=== PATIENT | male | born 1990 | race Caucasian/White ===

== ENCOUNTER 2017-12-25 18:29 | Emergency (ER) | payer BC ==
[~2017-12-25] VITALS: Ht 175.3 cm; Wt 111.4 kg
[2017-12-25 18:43] VITALS: Ht 175.3 cm; Wt 111.4 kg
[2017-12-25] MEDS ORDERED: DOXYCYCLINE HY100 M2 PO (19:09)
[2017-12-25 19:55] VITALS: BP 135/85
== END 2017-12-25 19:56 | disposition home or self-care (01) ==
LOC: D.ER 18:29
DX: J06.9 Acute upper respiratory infection, unspecified (principal); F17.200 Nicotine dependence, unspecified, uncomplicated

== ENCOUNTER 2020-07-29 07:38 | Emergency (ER) | payer SELFPAY ==
[~2020-07-29] VITALS: Ht 175.3 cm; Wt 137.4 kg
[~2020-07-29 07:38] MED LIST: DOXYCYCLINE HY100 M2 PO
[2020-07-29 07:43] VITALS: Ht 175.3 cm; Wt 137.4 kg
[2020-07-29 08:13] LABS: BASOPHILS 0.1 % (0-2); EOSINOPHILS 5.1 % (0-7); HEMATOCRIT 45.7 % (42.0-54.0); HEMOGLOBIN 14.8 g/dL (13.5-17.5); IMMATURE GRANULOCYTES 0.3 % (0-5); LYMPHOCYTE ABS# 2.46 10x3/uL (1.32-3.57); LYMPHOCYTES 33.2 % (15-50); MCHC 32.4 g/dL (31.0-37.0); MCV 83.4 fL (80.0-100.0); MEAN PLATELET VOLUME 9.6 fL (7.4-10.4); MONOCYTES 8.1 % (2-11); NEUTROPHIL ABS# 3.95 10x3/uL (1.78-5.38); NEUTROPHILS 53.2 % (40-80); PLATELET COUNT 293 10x3/uL (130-400); RBC 5.48 10x6/uL (4.20-6.10); RDW 13.8 % (11.5-14.5); WBC 7.4 10x3/uL (4.8-10.8)
[2020-07-29 08:22] LABS: CALC OSMOLALITY 276 mosm/kg (275-300); CHLORIDE - SERUM 103 mmol/L (98-107); CREATININE - SERUM 1.1 mg/dL (0.6-1.3); GLUCOSE 106 mg/dL (74-106); POTASSIUM - SERUM 4.2 mmol/L (3.5-5.1); SODIUM 138 mmol/L (136-145); UREA NITROGEN 14 mg/dL (7-18); eGFR NON AFRICAN AMERICAN 83 mL/min (90-120)
[2020-07-29 08:26] LABS: ALBUMIN 3.9 g/dL (3.4-5.0); ALKALINE PHOSPHATASE 118 U/L (30-120); ALT (SGPT) 44 U/L (10-68); AMYLASE - SERUM 58 U/L (25-115); BILIRUBIN - TOTAL 0.22 mg/dL (0.2-1.3); LIPASE 92 U/L (73-393); PROTEIN - SERUM 8.1 g/dL (6.4-8.2); TROPONIN-I < 0.017 ng/mL (0.000-0.060)
[2020-07-29 09:25] VITALS: BP 129/85
[2020-07-29 09:42] LABS: BILIRUBIN NEGATIVE (NEGATIVE); KETONE NEGATIVE (NEGATIVE); NITRITE NEGATIVE (NEGATIVE); UROBILINOGEN NORMAL mg/dL (< 2)
[2020-07-29 09:43] LABS: BACTERIA FEW HPF (NONE SEEN); SQUAMOUS EPITHELIAL 0-5 HPF (0-4); WHITE CELLS - URINE 2 HPF (0-1)
[2020-07-29] MEDS ORDERED: CARAFATE1 G PO (10:19)
[2020-07-29] MEDS ORDERED: LEVSIN/ANASP0.125 MG PO (10:19)
[2020-07-29] MEDS ORDERED: FLORASTOR250 MG PO (10:19)
[2020-07-29] MEDS ORDERED: PROTONIX40 MG PO (10:19)
[2020-07-29] MEDS ORDERED: ZOFRAN ODT4 MG/UDTAB PO (10:23)
== END 2020-07-29 10:32 | disposition home or self-care (01) ==
LOC: D.ER 07:38
PROVIDERS: Family Medicine
DX: R10.9 Unspecified abdominal pain (principal)